=== PATIENT | female | born 1985 | race African-American/Black ===

== ENCOUNTER 2023-10-03 22:29 | Emergency (ER) | payer OTHER ==
[~2023-10-03] VITALS: Ht 172.7 cm; Wt 91.0 kg
[2023-10-03 22:33] VITALS: BP 136/62; PULSE 90; RESP 18; TEMP 98.4; O2SAT 97
[2023-10-03] MEDS ORDERED: EPIN0.3P3 IM (23:48)
[2023-10-04] MEDS: DEXAMETHASONE 4MG/ML 1ML VIAL IV ONE (00:10)
[2023-10-04] MEDS: DIPHENHYDRAMINE 50MG/ML VIAL IV ONE (00:10)
== END 2023-10-04 00:29 | disposition home or self-care (01) ==
LOC: ER 22:29
DX: T78.40XA Allergy, unspecified, initial encounter (principal); X58.XXXA Exposure to other specified factors, initial encounter
CPT/HCPCS: 99284; 96374; 96375; J1100; J1200